=== PATIENT | male | born 2005 | race Caucasian/White ===

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

== ENCOUNTER 2023-07-21 20:38 | Emergency (ER) | payer OTHER ==
[~2023-07-21] VITALS: Ht 175.3 cm; Wt 104.0 kg
[2023-07-21 20:44] VITALS: BP 168/96; PULSE 105; RESP 18; TEMP 99; O2SAT 99
[2023-07-22] MEDS ORDERED: IBUP-2029 PO (01:10)
== END 2023-07-22 01:33 | disposition home or self-care (01) ==
LOC: ER 20:38
DX: J02.9 Acute pharyngitis, unspecified (principal); K12.1 Other forms of stomatitis; Z20.822 Contact with and (suspected) exposure to COVID-19
CPT/HCPCS: 99283; 87426; 87430; C9803